=== PATIENT | female | born 1975 | race Caucasian/White ===

== ENCOUNTER 2023-06-23 18:03 | Emergency (ER) | payer MEDICAID, OTHER ==
[~2023-06-23] VITALS: Ht 162.6 cm; Wt 72.6 kg
[~2023-06-23 18:03] MED LIST: METF1TAB PO; NIFE30TE5 PO
[2023-06-23 18:27] VITALS: BP 140/81; PULSE 95; RESP 20; TEMP 98.1; O2SAT 99
[2023-06-23] MEDS: HYDROcodone/APAP 5/325 MG 1 TAB TAB PO ONE (20:57)
[2023-06-23] MEDS ORDERED: HYDR-5191 PO (21:55)
[2023-06-23] MEDS ORDERED: CEPH-588 PO (21:55)
[2023-06-23 22:00] VITALS: BP 140/81; PULSE 95; RESP 20; TEMP 98.1; O2SAT 99
== END 2023-06-23 22:00 | disposition home or self-care (01) ==
LOC: MED 18:03
DX: L03.031 Cellulitis of right toe (principal); E11.9 Type 2 diabetes mellitus without complications; I10 Essential (primary) hypertension; Z79.4 Long term (current) use of insulin; Z79.899 Other long term (current) drug therapy
CPT/HCPCS: 73630; 99283

== ENCOUNTER 2023-09-12 09:33 | Inpatient (IN) | payer OTHER ==
[~2023-09-12] VITALS: Ht 167.6 cm; Wt 63.5 kg
[~2023-09-12 09:33] MED LIST changes: +CEPH-588 PO; +HYDR-5071 PO
[2023-09-12 09:52] VITALS: BP 106/54; PULSE 63; RESP 19; TEMP 98.3; O2SAT 94
[2023-09-12 11:11] LABS: BASOPHILS # (AUTO) 0.1 K/uL (0.00-0.22); BASOPHILS % (AUTO) 0.7 % (0.0-2.0); EOSINOPHILS # (AUTO) 0.3 K/uL (0-0.4); EOSINOPHILS % (AUTO) 3.4 % (0.0-4.0); HEMATOCRIT 23.6 % (36-48); LYMPHOCYTES # (AUTO) 0.9 K/uL (2.5-16.5); LYMPHOCYTES % (AUTO) 9.8 % (20.5-51.1); MEAN CORPUSCULAR HEMOGLOBIN 33 pg (27-31); MEAN CORPUSCULAR HGB CONC 34 g/dL (33-37); MEAN CORPUSCULAR VOLUME 96.5 fL (80-94); MONOCYTES # (AUTO) 0.4 K/uL (0.8-1.0); MONOCYTES % (AUTO) 4.2 % (1.7-9.3); NEUTROPHILS # (AUTO) 7.5 K/uL (1.8-7.7); NEUTROPHILS % (AUTO) 81.9 % (42.2-75.2); PLATELET COUNT (AUTO) 204 K/uL (140-450); RED BLOOD CELL COUNT(AUTO) 2.44 MIL/uL (4.20-5.40); RED CELL DISTRIBUTION WIDTH 16.1 % (11.6-13.7); WHITE BLOOD COUNT (AUTO) 9.2 K/uL (4.8-10.8)
[2023-09-12 11:21] LABS: ANION GAP 20.7 (8-16); CALCIUM 8.8 mg/dL (8.5-10.1); CARBON DIOXIDE 24.9 mmol/L (21-32); CHLORIDE 98 mmol/L (98-107); GFR ARICAN-AMERICAN 8 mL/min (>90); GFR NON ARICAN-AMERICAN 7 mL/min (>90); GLUCOSE 323 mg/dL (74-106); POTASSIUM 5.6 mmol/L (3.5-5.1); SODIUM SERUM 138 mmol/L (136-145); UREA NITROGEN, BLOOD 54 mg/dL (7-18)
[2023-09-12 11:29] LABS: ALANINE AMINOTRANSFERASE 22 U/L (12-78); ALBUMIN 3.3 g/dL (3.4-5.0); ALKALINE PHOSPHATASE 105 U/L (50-136); ASPARTATE AMINOTRANSFERASE 10 U/L (15-37); TOTAL BILIRUBIN 0.5 mg/dL (0.0-1.0)
[2023-09-12 11:38] LABS: CREATININE 7.1 mg/dL (0.6-1.3)
[2023-09-12] MEDS: SODIUM BICARBONATE 8.4% PFS 50 MEQ/50 ML SYR IVP ONE (13:25)
[2023-09-12] MEDS ORDERED: LORazepam 1 MG TAB PO PRN (14:00)
[2023-09-12] MEDS ORDERED: HYDROcodone/APAP 5/325 MG 1 TAB TAB PO PRN (14:00)
[2023-09-12] MEDS ORDERED: ONDANSETRON 4 MG/2 ML VIAL IVP PRN (14:00)
[2023-09-12] MEDS ORDERED: ZOLPIDEM 5 MG TAB PO PRN (14:00)
[2023-09-12] MEDS ORDERED: MORPHINE SULFATE 4 MG/ML SYR IVP PRN (14:00)
[2023-09-12] MEDS ORDERED: ACETAMINOPHEN 325 MG TAB PO PRN (14:00)
[2023-09-12] MEDS: ALBUTEROL 0.083% 2.5 MG/3 ML NEBU INH ONE (14:10)
[2023-09-12 14:11] VITALS: PULSE 66; RESP 18; O2SAT 99
[2023-09-12] MEDS: INSULIN REGULAR, HUMAN 100 UNIT/ML VIAL IVP ONE (14:17)
[2023-09-12] MEDS: CALCIUM CHLORIDE 10% 100 MG/ML SYR IVP ONE (14:20)
[2023-09-12] MEDS: DEXTROSE 50% 50 ML SYR IVP ONE (14:25)
[2023-09-12 15:07] VITALS: PULSE 73; RESP 17; O2SAT 89
[2023-09-12 15:37] VITALS: BP 148/61; PULSE 73; RESP 17; TEMP 97.1; O2SAT 89
[2023-09-12 16:00] VITALS: PULSE 86
[2023-09-12 20:00] VITALS: BP 157/76; PULSE 78; RESP 18; RESP 19; TEMP 97.1; O2SAT 100
[2023-09-12] MEDS ORDERED: DEXTROSE 50% 50 ML SYR IVP PRN (22:40)
[2023-09-13] VITALS: BP 161/73; PULSE 78; PULSE 79; RESP 18; TEMP 99; O2SAT 100
[2023-09-13 04:00] VITALS: BP 144/73; PULSE 69; PULSE 91; RESP 17; TEMP 97.4; O2SAT 100
[2023-09-13] MEDS: BLOOD GLUCOSE MONITORING 1 DEV DEV FS SCH (06:18)
[2023-09-13] MEDS: INSULIN LISPRO SLIDING SCALE 100 UNITS/ML VIAL SUBQ PRN (06:25)
[2023-09-13 06:53] LABS: BASOPHILS % (AUTO) 0.5 % (0.0-2.0); EOSINOPHILS # (AUTO) 0.4 K/uL (0-0.4); EOSINOPHILS % (AUTO) 5.8 % (0.0-4.0); HEMATOCRIT 23.1 % (36-48); HEMOGLOBIN 7.9 g/dL (12.0-16.0); LYMPHOCYTES # (AUTO) 0.9 K/uL (2.5-16.5); LYMPHOCYTES % (AUTO) 13.8 % (20.5-51.1); MEAN CORPUSCULAR HEMOGLOBIN 33 pg (27-31); MEAN CORPUSCULAR HGB CONC 34 g/dL (33-37); MEAN CORPUSCULAR VOLUME 96.3 fL (80-94); MONOCYTES # (AUTO) 0.3 K/uL (0.8-1.0); MONOCYTES % (AUTO) 5.2 % (1.7-9.3); NEUTROPHILS # (AUTO) 4.8 K/uL (1.8-7.7); NEUTROPHILS % (AUTO) 74.7 % (42.2-75.2); PLATELET COUNT (AUTO) 194 K/uL (140-450); RED CELL DISTRIBUTION WIDTH 16.6 % (11.6-13.7); WHITE BLOOD COUNT (AUTO) 6.4 K/uL (4.8-10.8)
[2023-09-13 07:18] LABS: ANION GAP 16.3 (8-16); CALCIUM 9.3 mg/dL (8.5-10.1); CARBON DIOXIDE 28.5 mmol/L (21-32); POTASSIUM 4.8 mmol/L (3.5-5.1)
[2023-09-13 07:35] LABS: CREATININE 5.7 mg/dL (0.6-1.3)
[2023-09-13 08:00] VITALS: BP 117/79; PULSE 69; PULSE 84; RESP 18; RESP 19; TEMP 97.6; O2SAT 100
[2023-09-13] MEDS: DOCUSATE SODIUM 100 MG GELCAP PO SCH (09:18)
[2023-09-13 12:00] VITALS: BP 158/72; PULSE 74; PULSE 75; RESP 18; TEMP 97.2; O2SAT 100
[2023-09-13] MEDS ORDERED: GLIP5TAB22 PO (14:15)
[2023-09-13 15:15] VITALS: BP 158/72; PULSE 74; RESP 18; TEMP 97.2
[2023-09-13] MEDS ORDERED: MEDS-TO-BEDS MC SCH (21:00)
== END 2023-09-13 16:00 | disposition home or self-care (01) | DRG 425 ==
LOC: MED 09:33 → MTU 13:58
PROVIDERS: ADMIT Internal Medicine; ATTEND Internal Medicine
PROC: 5A1D70Z Performance of Urinary Filtration, Intermittent, Less than 6 Hours Per Day (ICD-10-PCS; principal; 2023-09-12)
DX: E87.5 Hyperkalemia (principal); I12.0 Hypertensive chronic kidney disease with stage 5 chronic kidney disease or end stage renal disease; E44.0 Moderate protein-calorie malnutrition; E11.22 Type 2 diabetes mellitus with diabetic chronic kidney disease; N18.6 End stage renal disease; D63.1 Anemia in chronic kidney disease; E78.5 Hyperlipidemia, unspecified; Z79.899 Other long term (current) drug therapy; Z68.22 Body mass index [BMI] 22.0-22.9, adult
CPT/HCPCS: 36415; 80048; 80053; 82948; 83735; 84484; 85025; 87081; 90935; 93005; 94640; 96374; 96375; 99291; J1644; J1815; J7613

== ENCOUNTER 2023-11-28 15:16 | Emergency (ER) | payer OTHER ==
[~2023-11-28] VITALS: Ht 167.6 cm; Wt 67.2 kg
[~2023-11-28 15:16] MED LIST changes: +GLIP5TAB22 PO; -METF1TAB PO
[2023-11-28 15:22] VITALS: BP 134/62; PULSE 79; RESP 18; TEMP 97.6; O2SAT 100
[2023-11-28] MEDS: HYDROcodone/APAP 5/325 MG 1 TAB TAB PO ONE (15:55)
[2023-11-28 15:57] LABS: BASOPHILS % (AUTO) 0.6 % (0.0-2.0); EOSINOPHILS # (AUTO) 0.4 K/uL (0-0.4); EOSINOPHILS % (AUTO) 4.9 % (0.0-4.0); HEMATOCRIT 29.8 % (36-48); HEMOGLOBIN 9.9 g/dL (12.0-16.0); LYMPHOCYTES # (AUTO) 0.8 K/uL (2.5-16.5); LYMPHOCYTES % (AUTO) 10.7 % (20.5-51.1); MEAN CORPUSCULAR HEMOGLOBIN 31 pg (27-31); MEAN CORPUSCULAR HGB CONC 33 g/dL (33-37); MEAN CORPUSCULAR VOLUME 92.5 fL (80-94); MONOCYTES # (AUTO) 0.5 K/uL (0.8-1.0); MONOCYTES % (AUTO) 6.2 % (1.7-9.3); NEUTROPHILS # (AUTO) 5.9 K/uL (1.8-7.7); NEUTROPHILS % (AUTO) 77.6 % (42.2-75.2); PLATELET COUNT (AUTO) 257 K/uL (140-450); RED BLOOD CELL COUNT(AUTO) 3.23 MIL/uL (4.20-5.40); RED CELL DISTRIBUTION WIDTH 17.2 % (11.6-13.7); WHITE BLOOD COUNT (AUTO) 7.6 K/uL (4.8-10.8)
[2023-11-28 16:09] LABS: ALBUMIN 3.6 g/dL (3.4-5.0); BILIRUBIN,DIRECT 0.1 mg/dL (0.0-0.3); TOTAL BILIRUBIN 0.5 mg/dL (0.0-1.0); TOTAL PROTEIN, SERUM 7.9 g/dL (6.4-8.2)
[2023-11-28 16:10] VITALS: BP 129/60; PULSE 77; RESP 17; TEMP 98.1
[2023-11-28 16:17] LABS: ANION GAP 11.6 (8-16); CALCIUM 10.1 mg/dL (8.5-10.1); CARBON DIOXIDE 31.8 mmol/L (21-32); CREATININE 3.3 mg/dL (0.6-1.3); POTASSIUM 4.4 mmol/L (3.5-5.1)
[2023-11-28] MEDS ORDERED: CEPH-588 PO (17:34)
[2023-11-28] MEDS ORDERED: LIDOCAINE MPF 1% 5 ML ONE (17:39)
[2023-11-28] MEDS ORDERED: cefTRIAXone 500 MG VIAL ONE (17:39)
[2023-11-28] MEDS: cefTRIAXone 500 MG in LIDOCAINE MPF 1% 1 ML IM ONE (17:45)
[2023-11-28 17:46] VITALS: O2SAT 100
== END 2023-11-28 17:56 | disposition home or self-care (01) ==
LOC: MED 15:16
DX: N30.00 Acute cystitis without hematuria (principal); I12.0 Hypertensive chronic kidney disease with stage 5 chronic kidney disease or end stage renal disease; E11.22 Type 2 diabetes mellitus with diabetic chronic kidney disease; N18.6 End stage renal disease; Z99.2 Dependence on renal dialysis; Z79.1 Long term (current) use of non-steroidal anti-inflammatories (NSAID); Z79.2 Long term (current) use of antibiotics; Z79.84 Long term (current) use of oral hypoglycemic drugs; Z79.899 Other long term (current) drug therapy
CPT/HCPCS: 36415; 74176; 80048; 80076; 83690; 85025; 96372; 99285; J0696; J2001